=== PATIENT | male | born 1960 | race Caucasian/White ===

== ENCOUNTER 2019-05-18 09:55 | Inpatient (IN) | payer OTHER ==
[~2019-05-18] VITALS: Ht 182.9 cm; Wt 116.8 kg
[2019-06-29] VITALS (8 sets, daily range): BP systolic 116–151; BP diastolic 65–77; PULSE 47–67; TEMP 97.2–98.4
--- NOTE | 2019-06-29 10:33 | NUR ---
Initial visit; Patient thanked Tour Escort for stopping and letting him know of the availability of spiritual care at [place].
[2019-06-29] MEDS ORDERED: COZAAR 25MG25 MG/TAB PO (11:42)
[2019-06-29] MEDS ORDERED: LANTUS SOLOS100 U/ML SQ (11:42)
[2019-06-29] MEDS ORDERED: COREG 25MG25 MG/TAB PO (11:42)
[2019-06-29] MEDS ORDERED: CATAPRES 0.1MG0.1 MG PO (11:42)
[2019-06-29] MEDS ORDERED: ZYRTEC5 MG PO (11:42)
[2019-06-29] MEDS ORDERED: GLUCOTROL XL10 MG PO (11:42)
[2019-06-29] MEDS ORDERED: NORVASC 10MG10 MG PO (11:42)
[2019-06-29] MEDS ORDERED: FORT1000TA PO (11:43)
[2019-06-29] MEDS ORDERED: MOBIC 7.5MG7.5 MG PO (11:43)
--- NOTE | 2019-06-29 12:30 | NUR ---
PATIENT BACK IN ROOM 332 POST OP. VSS. NO C/O PAIN. LTK DRESSING IS CD&I WITH AQUACEL AND CRYOCUFF INPLACE. TEDS & SCD'S TO BLE. POSITIVE PEDAL PULSES TO BLE. LANDRY TO DD WITH CLEAR YELLOW URINE NOTED. IV FLUIDS INFUSING VIA PUMP. NO C/O N/V. LIQUIDS AT BEDSIDE. PATIENT REPORTS HE IS HUNGRY. PUDDING GIVEN, TRAY ORDERED. HEAD TO TOE WNL. FAMILY AT BEDSIDE. CALL LIGHT IN REACH.
[2019-06-29] MEDS ORDERED: TRULICITY0.75 MG/0. SQ (14:23)
[2019-06-29] MEDS ORDERED: ASPIRIN 81M81 MG/TA2 PO (14:25)
[2019-06-29] MEDS ORDERED: EZALLOR SPRINKLE5 MG PO (14:25)
[2019-06-29] MEDS ORDERED: CRESTOR5 MG PO (14:45)
--- NOTE | 2019-06-29 17:02 | NUR ---
Shrimp Peeler met with patient and patient's Amee (ph#[phone]) to discuss discharge planning. Patient lives in [place] and sees Dr. Summers at the [place] clinic for primary care. Patient reports the [facility] delivers his medications to his home. Patient has a walker to assist with mobility. Patient does not have Advance Directives set up and not interested in setting up at this time. Patient plans to return home upon discharge.
[2019-06-30] VITALS: BP 153/90; PULSE 63; TEMP 98.1
--- NOTE | 2019-06-30 03:47 | NUR ---
Patient has rested well throughout the night. At the beginning of the shift, patient stated pain 9/10 to left knee. Pain level has come down to a 6/10. Patient refused to get out of bed d/t pain to knee. Cryocuff present. Aquacel present and clean, dry, and intact. at bedside throughout the night. Antibiotics given per orders. Pain medication given as ordered. Denies any further needs. Will continue to monitor.
[2019-06-30 04:00] VITALS: BP 139/77; PULSE 79; TEMP 98.2
[2019-06-30 06:45] LABS: HEMATOCRIT 37.1 % (42.0-52.0); HEMOGLOBIN 12.3 g/dl (13.5-18.0)
[2019-06-30 06:53] LABS: CALCIUM 8.7 mg/dL (8.4-10.2); CREATININE, serum 0.89 (0.66-1.25); POTASSIUM 4.4 mmol/L (3.4-5.0)
[2019-06-30 07:15] VITALS: BP 167/86; PULSE 64; TEMP 97.8
[2019-06-30 12:31] VITALS: BP 127/82; PULSE 82; TEMP 98.7
[2019-06-30 16:07] VITALS: BP 178/88; PULSE 92; TEMP 98.6
[2019-06-30 21:16] VITALS: BP 142/81; PULSE 76; TEMP 98.4
[2019-07-01 00:03] VITALS: BP 158/87; PULSE 77; TEMP 98.3
[2019-07-01 05:33] VITALS: BP 145/67; PULSE 86; TEMP 98.7
--- NOTE | 2019-07-01 05:49 | NUR ---
Patient rested well throughout the night. Pain more controlled this shift. Slept from midnight to about 0600 without requiring pain medication. RT stated patient's oxygen saturation decreases when he is sleeping. Oxygen left on throughout the night. Will report this to day shift to notify physician as patient does not normally wear oxygen at home. Dressing clean, dry, and intact. Cryocuff in use. Patient utilizing urinal at bedside. Denies any further needs. Will report off to day shift nurse.
--- NOTE | 2019-07-01 07:39 | NUR ---
REPORT FROM SOM LONGORIA.
--- NOTE | 2019-07-01 08:19 | NUR ---
DRESSING TO LEFT KNEE CDI. PT RESISTANT TO DISCHARGE DISCUSSIONS. WILL FOLLOW UP WITH [facility]THO AFTER THEIR SURGERY SCHEDULE COMPLETE.
--- NOTE | 2019-07-01 08:31 | NUR ---
RA SPO2 75% WITH SNORING PLACED ON 3 LPM NC 92%
--- NOTE | 2019-07-01 08:35 | NUR ---
PT SATS DROPPING TO MID 70'S WHEN ASLEEP. RT RECCOMENDS NOC OX STUDY. O2 PLACED WITH 3 l PNC. HOSPITALIST HAS ROUNDED AND RECCOMENDING FOLLOW UP WITH PRIMARY OUTPATIENT.
[2019-07-01 08:42] VITALS: BP 143/69; PULSE 75; TEMP 98.4
--- NOTE | 2019-07-01 09:17 | NUR ---
PT WILL STAY OVERNIGHT FOR NOC OX STUDY. PT REQUIRING O2 TO MAINTAIN SATS OVER 90 WHEN SLEEPING THIS AM.
--- NOTE | 2019-07-01 10:57 | NUR ---
Initial isit; Patient and family thanked Batch Roller Operator for looking in on him and letting him know of the availability of spiritual care and the offering of Holy Communion at [place].
--- NOTE | 2019-07-01 12:12 | NUR ---
PT'S TOOK PRESCRIPTIONS TO GET FILLED.
[2019-07-01 12:18] VITALS: BP 160/73; PULSE 83; TEMP 98.6
--- NOTE | 2019-07-01 12:41 | NUR ---
PT RESTING IN CHAIR. HE STATES HIS PAIN IS "GETTING BETTER" AND THAT IT IS A 4 ON A NUMERIC 1-10 SCALE. CONTINUES TO COMPLAIN OF NAUSEA WITH MOVEMENT. CALL LIGHT IN EASY REACH.
[2019-07-01 17:13] VITALS: BP 112/59; PULSE 60; TEMP 98.1
--- NOTE | 2019-07-01 18:46 | NUR ---
REPORT TO LAURA LONGORIA.
[2019-07-01 19:52] VITALS: BP 139/56; PULSE 74; TEMP 98.5
[2019-07-02 00:37] VITALS: BP 136/62; PULSE 59; TEMP 97.5
--- NOTE | 2019-07-02 02:29 | NUR ---
PATIENT DOING WELL TONIGHT. C/O PAIN TO L KNEE. STATES CRYOCUFF IS NOT WORKING. GAVE PATIENT AN ICEPACK INSTEAD. AMBULATED TO BATHROOM X1 ASSIST. HAD UNMEASURED VOID. WBG ELEVATED. GIVEN 4 UNITS NOVOLOG. PATIENT STATED HE WAS SEEING OBJECTS IN HIS ROOM MOVE. WILL CONTINUE TO MONITOR. NO FURTHER NEEDS AT THIS TIME.
[2019-07-02 04:36] VITALS: BP 135/58; PULSE 74; TEMP 98.9
--- NOTE | 2019-07-02 08:00 | NUR ---
Pt is awake and A/Ox4, though he does report having some hallucinations. Dressing to left knee is free of complications, changed by VON Figueroa. Cryocuff ice on. Pt denies any needs at this time.
[2019-07-02 08:21] VITALS: BP 139/46; PULSE 65; TEMP 97.5
[2019-07-02] MEDS ORDERED: NORCO 325 MG-7.1 TAB PO (08:43)
[2019-07-02] MEDS ORDERED: ASPI325T6 PO (08:43)
[2019-07-02] MEDS ORDERED: TYLENOL 500MG500 MG PO (08:44)
[2019-07-02] MEDS ORDERED: ZOFRAN 4MG T4 MG/TAB PO (08:44)
[2019-07-02] MEDS ORDERED: ROXICODONE 55 MG/TAB PO (08:44)
[2019-07-02 12:03] VITALS: BP 133/62; PULSE 77; TEMP 98.6
--- NOTE | 2019-07-02 13:29 | NUR ---
Pt was discharged home from hospital. All discharge paperwork and instructions were reviewed with pt and , provided by VON Figueroa. Dressing changed. New prescriptions previously given to . Pt was escorted out of facility by staff.
== END 2019-07-02 13:30 | disposition home or self-care (01) | DRG 470 ==
LOC: JCC 06-29 06:28
PROVIDERS: Physician Assistant; ADMIT Orthopaedic Surgery
PROC: 0SRD0J9 Replacement of Left Knee Joint with Synthetic Substitute, Cemented, Open Approach (ICD-10-PCS; principal; 2019-06-29 11:20)
DX: M17.12 Unilateral primary osteoarthritis, left knee (principal); E11.9 Type 2 diabetes mellitus without complications; E78.5 Hyperlipidemia, unspecified; I10 Essential (primary) hypertension; E66.9 Obesity, unspecified; Z79.4 Long term (current) use of insulin; Z87.891 Personal history of nicotine dependence; R09.02 Hypoxemia
CPT/HCPCS: 99222; 99232-AI; A4314; A9284; C1776; J0690; J1815; J2250; J2270; J2405; J2704; J3010; J3370; J7030